=== PATIENT | female | born 1995 | race Caucasian/White ===

== ENCOUNTER 2017-03-13 11:41 | Emergency (ER) | payer OTHER ==
[2017-03-13] MEDS ORDERED: Dextrose 50% Syringe 50 ML* 25 GM/50 ML SYRINGE IV PUSH ONE (13:27)
[2017-03-13] MEDS ORDERED: Ondansetron INJ* 2 MG/ML VIAL IV ONE ×2 (13:27→16:07)
[2017-03-13] MEDS ORDERED: cefTRIAXone VIAL(*) 250 MG VIAL IM ONE (15:56)
[2017-03-13] MEDS ORDERED: Azithromycin TAB* 250 MG PO ONE (15:57)
[2017-03-13] MEDS ORDERED: Tenofovir/Emtricitabine(*) TAB PO ONE ×2 (15:57→16:00)
[2017-03-13] MEDS ORDERED: Raltegravir* 400 MG TAB PO ONE ×2 (16:02→16:03)
[2017-03-13] MEDS ORDERED: Ondansetron ODT TAB* 4 MG PO ONE ×2 (16:06→16:56)
[2017-03-13 16:29] LABS: Hematocrit 39 % (35-47); Hemoglobin 13.1 g/dl (12.0-16.0); Mean Corpuscular HGB Conc 33 g/dl (31-36); Mean Corpuscular Hemoglobin 32 pg (27-31); Mean Corpuscular Volume 95 fL (80-97); Mean Platelet Volume 10 um3 (7.4-10.4); Red Blood Count 4.15 10^6/ul (4.0-5.4); Red Cell Distribution Width 13 % (10.5-15); White Blood Count 10.8 10^3/ul (3.5-10.8)
[2017-03-13 16:41] LABS: ALT 25 U/L (7-52); AST 30 U/L (13-39); Albumin 4.2 g/dL (3.2-5.2); Alkaline Phosphatase 53 U/L (34-104); Anion Gap 15 mmol/L (2-11); Blood Urea Nitrogen 13 mg/dL (6-24); CO2 Carbon Dioxide 17 mmol/L (22-32); Calcium 9.3 mg/dL (8.6-10.3); Chloride 106 mmol/L (101-111); EGFR African American 149.4 (>60); EGFR Non-African American 116.2 (>60); Globulin 2.7 g/dL (2-4); Glucose 46 mg/dL (70-100); Potassium 3.5 mmol/L (3.5-5.0); Sodium 138 mmol/L (133-145); Total Protein 6.9 g/dL (6.4-8.9)
[2017-03-13] MEDS ORDERED: Lidocaine 1%* 5 ML VIAL ONE (16:58)
[2017-03-13] MEDS ORDERED: Norgestrel/Ethinyl Estrad TAB* 0.5 MG/0.05 MG PO SCH (17:00)
[2017-03-13 19:10] VITALS: BP 100/74
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
== END 2017-03-13 19:08 | disposition home or self-care (01) ==
LOC: ED 11:41
DX: T74.21XA Adult sexual abuse, confirmed, initial encounter (principal)
CPT/HCPCS: 36415; 80053; 84702; 85025; 86706; 86803; 87340; 99285; A9270-GY; J0696; J2405